=== PATIENT | female | born 1960 | race Caucasian/White ===

== ENCOUNTER 2023-11-29 00:08 | Emergency (ER) | payer OTHER, SELFPAY ==
[2023-11-29 00:09] VITALS: BP 159/84; BMI 29.7
[2023-11-29 00:40] LABS: ALT (SGPT) 18 U/L (0-35); AST (SGOT) 21 U/L (14-36); Albumin 4.7 g/dl (3.5-5.0); Alkaline Phosphatase 79 U/L (38-126); Blood Urea Nitrogen 13 mg/dl (7-17); Calcium 10.8 mg/dl (8.4-10.2); Carbon Dioxide 21 mmol/L (22-30); Chloride 103 mmol/L (98-107); Estimated Creatinine Clearance 81 ml/min; Glucose 140 mg/dl (70-99); Lipase 132 U/L (23-300); Potassium 3.9 mmol/L (3.5-5.1); Sodium 139 mmol/L (135-145); Total Bilirubin 2.1 mg/dl (0.2-1.3); Total Protein 7.2 g/dl (6.3-8.2); eGFR > 60.00
[2023-11-29 00:45] LABS: % Basophils 0.5 % (0-2); % Eosinophils 0.5 % (0-6); % Immature Granulocytes 0.5 % (0-0.5); % Lymphocytes 16.2 % (20.5-51.1); % Monocytes 4.5 % (1.7-9.3); % Neutrophils 77.8 % (42.2-75.2); Absolute Basophils 0.1 10^3/uL (0-0.2); Absolute Eosinophils 0.1 10^3/uL (0-0.7); Absolute Immature Granulocytes 0.1 10^3/uL (0-0.05); Absolute Lymphocytes 2.1 10^3/uL (1.2-3.4); Absolute Monocytes 0.6 10^3/uL (0.1-0.6); Absolute Neutrophils 10.1 10^3/uL (1.4-6.5); Hematocrit 39.9 % (37.0-47.0); Hemoglobin 13.9 g/dL (12.0-16.0); Mean Corp Hgb Conc. 34.8 g/dL (33.0-37.0); Mean Corpuscular Hgb 28.3 pg (27.0-31.0); Mean Corpuscular Volume 81.3 fL (81.0-99.0); Mean Platelet Volume 10.6 fL (7.4-10.4); Nucleated Red Blood Cells % 0 %; Platelet Count 321 10^3/uL (130-400); Red Blood Cell Count 4.91 10^6/uL (4.20-5.40); Red Cell Dist. Width 12.1 % (11.5-14.5)
--- NOTE | 2023-11-29 00:47 | ED.GENMED ---
History of Present Illness
General
Chief Complaint: Abdominal Pain
Source: patient and ambulance crew
Exam Limitations: none
Time Seen by Provider: 11/29/23 00:33
Nursing documentation reviewed up to this point in time: agreed with
History of Present Illness
History of Present Illness:
This is a 63-year-old woman who resides at home with family. She has history of hypertension, hyperlipidemia, obesity. She awoke tonight with abrupt onset of severe right lower quadrant pain accompanied with chills, diaphoresis, nausea, vomiting.
She admits to feeling restless, unable to find a comfortable position. She did take 2 Gas-X, initially with no relief. She arrives via EMS and now admits to feeling improved, pain has resolved.
No history of similar episodes of pain. She admits to overall not feeling well throughout the day yesterday, mildly nauseous but no vomiting. Admits to somewhat poor oral intake throughout the day yesterday which is not uncommon as she began
Wegovy for obesity 4 months ago. Currently at 1 mg weekly. She has had some intermittent nausea with Wegovy and occasional dry heaves but never accompanied with pain. She has also been somewhat chronically constipated with initiation of Wegovy
but has been moving her bowels at least twice per week. She denies dysuria and urgency and or hematuria. No chest pain no cough no shortness of breath.
Her other daily medications include: Lisinopril 10 mg daily, metoprolol succinate 25 mg daily, atorvastatin 20 mg daily.
She is menopausal beginning 12 years ago.
No prior history of ovarian cysts, no prior abdominal surgeries.
Past History
Past History
ED Past Medical History: HTN, Hypercholesterolemia and Other (Migraines)
ED Past Surgical History: Other (Rhinoplasty)
Social History
Tobacco: Non-smoker
Alcohol: None
Personal:
Living: with family
Employment: Retired
Family History
Family History: Other (Noncontributory)
Phy Exam
Physical Exam
Physical Exam:
GENERAL: 63-year-old woman appears her stated age, bright and alert, pleasant, appears in no acute distress.
EYE: anicteric
NECK: Supple, nontender, no meningismus, no significant adenopathy.
ENT: oral mucosa is moist. Lips are mildly dry. No rhinorrhea. No palpable masses.
CARDIAC: Regular rate and rhythm. no murmur.
LUNGS: Clear breath sounds bilaterally, no acute respiratory distress, no wheezes/rales/rhonchi
ABDOMEN: Soft, nondistended, without focal tenderness, no r/g, no cvat. normoactive BS. No palpable masses.
NEUROLOGICAL: Alert and oriented x3, no focal neuro deficits.
SKIN: Warm and dry, normal color, skin intact. No rash.
MUSCULOSKELETAL: No C/C/E. peripheral pulses are full and equal b/l. No palpable tenderness.
PSYCH: Normal and appropriate interaction.
Course
Orders/Labs/Results
Orders:
Orders
11/29/23 00:16
Complete Blood Count/With Diff Urgent
Comprehensive Metabolic Panel Urgent
Lipase Urgent
11/29/23 00:44
0.9% Sodium Chloride 1000 ml [Nss] 1,000 ml IV BOLUS
11/29/23 00:45
CT Abd/pel Without Iv Or Oral Urgent
Comment:
Reason For Exam: acute severe RLQ pain w N/V
11/29/23 01:58
Ketorolac [Toradol] 15 mg IV NOW STA
Pantoprazole [Protonix IV] 40 mg IV NOW STA
11/29/23 03:15
Prochlorperazine [Compazine] 10 mg IV NOW STA
11/29/23 03:33
Urinalysis Reflex To Culture Urgent
Date Specimen was Collected: 11/29/23
Time Specimen was Collected: 02:30
Urine Microscopic Reflex Cult Urgent
Urine Culture Urgent
JOSSE Source: U
Specimen Description:
Date Specimen was Collected: 11/29/23
Time Specimen was Collected: 02:30
11/29/23 04:37
CefTRIAXone [Rocephin] 1,000 mg IV NOW STA
11/29/23 04:52
Sterile Water [Sterile Water For Injection] 10 ml .ROUTE .STK-MED ONE
Abnormal Lab Results
11/29/23 11/29/23
00:16 03:33
WBC 13.0 H 10^3/uL
(4.8-10.8)
MPV 10.6 H fL
(7.4-10.4)
Abs Immat Gran (auto) 0.1 H 10^3/uL
(0-0.05)
Absolute Neuts (auto) 10.1 H 10^3/uL
(1.4-6.5)
Neutrophils % 77.8 H %
(42.2-75.2)
Lymphocytes % 16.2 L %
(20.5-51.1)
Carbon Dioxide 21 L mmol/L
(22-30)
Glucose 140 H mg/dl
(70-99)
Calcium 10.8 H mg/dl
(8.4-10.2)
Total Bilirubin 2.1 H mg/dl
(0.2-1.3)
Urine Ketones 2+ A
(Negative)
Ur Occult Blood Reflex 4+ A
(Negative)
Leukocyte Esterase Rfl 1+ A
(Negative)
Urine RBC >100 A /HPF
(0-2)
Urine Bacteria (Reflex) Many A
(Negative)
11/29/23 00:16
11/29/23 00:16
Vital Signs
Initial and Last Documented VS:
Initial Vital Signs
Temp Pulse Resp BP Pulse Ox
97.6 F 109 16 159/84 97
11/29/23 00:09 11/29/23 00:09 11/29/23 00:09 11/29/23 00:09 11/29/23 00:09
Last Documented Vital Signs
Temp Pulse Resp BP Pulse Ox
97.6 F 103 17 143/77 97
11/29/23 00:09 11/29/23 02:00 11/29/23 02:00 11/29/23 02:00 11/29/23 02:00
MDM/Problems Addressed
Differential Diagnosis Includes:
Concern for acute biliary colic, acute renal colic, small bowel obstruction, constipation, UTI. Less likely ovarian cyst/ovarian torsion.
She does have history of hypertension but generally well-controlled, no reported back pain, abdominal aortic aneurysm/dissection much less likely.
Patient currently comfortable and pain-free. Will continue to observe for return of symptoms.
Will check labs, urinalysis and will plan for CT abdomen pelvis.
Chronic conditions affecting care: HTN
*Radiology
Radiology exam reviewed: radiology read reviewed
*Pulse Oximetry
Patient hypoxic: no
*Critical Care Note
Total Time (30-74mins, 75-104mins- exclusive of procedures): Not Applicable
Update Note
Update Note:
11/29/2023 0159 AM
Patient overall remains comfortable. She has very mild ache right lower quadrant but no return of nausea.
Labs show mildly elevated white blood cell count of 13, bilirubin 2.1. Mildly elevated glucose 140. Mildly elevated calcium of 10.8. Normal BUN and creatinine. All other LFTs within normal limits.
CAT scan shows a 2 to 3 mm stone at the right distal UVJ/bladder trigone with mild hydronephrosis, hydroureter and mild perinephric stranding. Appendix is mildly dilated at 8 mm but otherwise unremarkable, nothing to suggest appendicitis. Abdomen
remains soft, nontender.
She does complain of mild heartburn and CAT scan shows incidental finding of a small hiatal hernia. Unremarkable gallbladder.
Will give an IV dose of Protonix for heartburn and due to mild right lower quadrant ache will give a small IV dose of Toradol.
Urinalysis is pending.
11/29/2023 0600 AM
Patient resting comfortably, no further heartburn nor nausea, migraine headache has resolved after an IV dose of Compazine.
Urinalysis shows many bacteria, greater than 100 RBCs. WBCs obscured due to RBCs but this appears to be a contaminated specimen with greater than 30 squamous epithelial cells. She continues to have no UTI symptoms but patient has been given a
one-time dose of Rocephin for bacteriuria.
Urine culture is pending.
Will discharge to home with prescription for oral Toradol for as needed return of pain, Zofran for as needed nausea.
Discussed importance of remaining well-hydrated on a daily basis.
Will refer to urology for as needed follow-up.
Return precautions discussed.
ED Attending Note
-
Portions of this chart may have been created with voice recognition software.� Occasional wrong word or��sound alike� substitutions may have occurred due to the inherent limitations of voice recognition software.
Discharge Plan
Departure
Patient Disposition: Home (Routine Discharge)
Date of Disposition: 11/29/23
Time of Disposition: 06:23
Patient with high blood pressure during this ER visit?: No
Condition: Good
Discharge Problem:
Right distal ureteral calculus
Instructions: Kidney Stones (DC)
Prescriptions:
New
ketorolac 10 mg tablet
10 mg PO QID PRN (Reason: pain) Qty: 20 0RF
ondansetron 4 mg tablet,disintegrating
4 mg PO QID PRN (Reason: nausea and vomiting) Qty: 20 0RF
Referrals:
Nawaf Longoria MD [Active] - As needed
Glenda Varela DO [Family Provider] -
Interventions
Interventions:
*Risk Screen - Suicide Last Done: 11/29/23 00:09
*General Assessment Last Done: 11/29/23 00:09
*Neglect/Abuse Screening Last Done: 11/29/23 00:09
ED- Fall Risk Assessment Last Done: 11/29/23 00:09
*ED COVID-19 Vaccine History Last Done: 11/29/23 00:09
SN-Pctsku-Ezkiinmgwz Assessment Last Done: 11/29/23 00:16
Discharge Date and Time
Print Language: CROATIAN
[2023-11-29] MEDS: NSS 1000 IV (00:49)
[2023-11-29 01:15] VITALS: BP 140/65
[2023-11-29 02:00] VITALS: BP 143/77
[2023-11-29] MEDS: TORADOL 15 MG IV (02:06)
[2023-11-29] MEDS: PROTONIX IV 40 MG IV (02:10)
[2023-11-29] MEDS: COMPAZINE 10 MG IV (03:17)
[2023-11-29 03:54] LABS: Urine Albumin Trace (Neg - Trace); Urine Bilirubin Negative (Negative); Urine Character Slightly Cloudy (Clear); Urine Color Yellow; Urine Glucose Negative (Negative); Urine Ketone 2+ (Negative); Urine Leukocyte 1+ (Negative); Urine Nitrite Negative (Negative); Urine Occult Blood 4+ (Negative); Urine Urobilinogen Negative (Neg - 1+)
[2023-11-29 04:27] LABS: Urine Amorphous Seen; Urine Calcium Oxalate Crystals Seen; Urine Squamous Cell >30 /LPF (Few)
[2023-11-29 04:28] LABS: Urine Bacteria Many (Negative); Urine Red Blood Cell >100 /HPF (0-2)
[2023-11-29 04:29] LABS: Urine Mucus Many
[2023-11-29] MEDS: ROCEPHIN 1000 MG IV (04:59)
[2023-11-29 06:36] VITALS: BP 133/74
== END 2023-11-29 06:44 | disposition home or self-care (01) ==
LOC: EMR 00:08
PROVIDERS: EMERGENCY PHYSICIAN Emergency Medicine; FAMILY PHYSICIAN Family Medicine
DX: N13.2 Hydronephrosis with renal and ureteral calculous obstruction (principal); I10 Essential (primary) hypertension; E78.00 Pure hypercholesterolemia, unspecified
CPT/HCPCS: 99284; 96374; 96375 ×3; 96361; 74176; 80053; 81003; 81015; 83690; 85025; 87086